=== PATIENT | female | born 1935 | race Caucasian/White ===

== ENCOUNTER 2017-02-18 20:53 | Inpatient (IN) | payer MEDICARE, OTHER ==
[~2017-02-18] VITALS: Ht 157.5 cm; Wt 63.6 kg
[2017-02-18 20:57] VITALS: Ht 157.5 cm; Wt 63.6 kg
[2017-02-18] MEDS ORDERED: LORAZEPAM 2 MG INJ IV ONE ×2 (21:30)
[2017-02-18 21:31] VITALS: TEMP 98.1
[2017-02-18] MEDS ORDERED: LEVO50TA83 PO (21:53)
[2017-02-18] MEDS ORDERED: LOSA50TA6 PO (21:53)
[2017-02-18] MEDS ORDERED: SULF1TAB31 PO (21:54)
[2017-02-18] MEDS ORDERED: FAMO20TA18 PO (21:54)
[2017-02-18 21:59] LABS: BASOPHIL # 0.1 10^3/ul (0.0-0.1); BASOPHILS % 0.7 % (0.0-2.0); EOSINOPHILS % 0.3 % (0.0-7.0); LYMPHOCYTES # 1.5 10^3/ul (0.8-2.9); LYMPHOCYTES % 15.1 % (15.0-51.0); MEAN CORPUSCULAR HEMOGLOBIN 31.1 pg (29.0-33.0); MEAN CORPUSCULAR HGB CONC 35.3 g/dl (32.0-37.0); MEAN CORPUSCULAR VOLUME 88.1 fl (82.0-101.0); MEAN PLATELET VOLUME 9.6 fl (7.4-10.4); MONOCYTE # 0.9 10^3/ul (0.3-0.9); MONOCYTES % 8.9 % (0.0-11.0); NEUTROPHIL # 7.2 10^3/ul (1.6-7.5); NEUTROPHILS % 74.6 % (39.0-77.0); PLATELET COUNT 271 10^3/UL (140-415); RED BLOOD COUNT 3.86 10^6/ul (4.20-5.40); RED CELL DISTRIBUTION WIDTH 12.9 % (11.5-14.5); WHITE BLOOD COUNT 9.7 10^3/ul (4.8-10.8)
--- NOTE | 2017-02-18 22:15 | RADRPT ---
PROCEDURE: XR Chest. CLINICAL INDICATION: Shortness of breath TECHNIQUE: Single AP portable chest COMPARISON: No prior Chest x-ray FINDINGS: The cardiomediastinal silhouette is within normal limits of size. Atherosclerotic calcification of t he aorta. The lungs are clear without pleural effusion or focal consolidation. No pneumothorax. Sev ere left glenohumeral joint space narrowing and subchondral sclerosis. Right total glenohumeral join t prosthesis. IMPRESSION: 1. No evidence for active cardiopulmonary disease. 2. Chronic findings of the shoulder joints as detailed above RPTAT:AAJJ Physician Kelsey Date Time Electronically viewed and signed by Physician Kelsey on 02/18/2017 22:14 PONCE/
[2017-02-18 22:23] LABS: D-DIMER 778.03 ng/ml (<460)
[2017-02-18 22:25] LABS: ANION GAP 17 (8-16); BLOOD UREA NITROGEN 11 mg/dl (7-20); CALCIUM 9.5 mg/dl (8.4-10.2); CARBON DIOXIDE 19 mmol/L (21-31); CHLORIDE 92 mmol/L (97-110); CREATININE 0.81 mg/dl (0.44-1.00); GLUCOSE 116 mg/dl (70-220); POTASSIUM 3.7 mmol/L (3.5-5.1); SODIUM 124 mmol/L (135-144)
[2017-02-18 22:37] LABS: TROPONIN-I < 0.012 ng/ml (0.00-0.12)
[2017-02-18] MEDS ORDERED: SOD CHLORIDE 0.9% 1,000 ML IV STA (22:43)
[2017-02-18] MEDS ORDERED: SOD CHLORIDE 0.9% 500 ML IV STA (22:46)
--- NOTE | 2017-02-18 22:50 | ERA ---
ER Documentation Chief Complaint Date/Time DATE: 02/18/17 TIME: 22:50 Chief Complaint BIBA RA99 from home, c/o SOB and palpitations HPI 81-year-old female presenting with complaints of shortness of breath and palpitations. History is limited as the patient seems somewhat confused and has difficulty remembering things per her. She denies any associated chest pain , fever, chills. She is unable to provide any further history. Her daughter later arrived at bedside and stated that the patient has been increasingly confused for the past 2 weeks. She was taken to [facility] 3 days ago and admitted for a UTI and confusion. CT head there was normal. She was diagnosed with a UTI and treated with Bactrim. She has taken 2 doses of her home Bactrim so far. She denies any dysuria at this time. ROS Limited given the patient's confusion Medications Home Meds Reported Medications Sulfamethoxazole/Trimethoprim* (Bactrim Ds* Tablet) 1 Each Tablet, 1 TAB PO BID , TAB 02/18/17 Famotidine* (Famotidine*) 20 Mg Tablet, 20 MG PO DAILY, #30 TAB 02/18/17 Losartan Potassium* (Losartan Potassium*) 50 Mg Tablet, 50 MG PO DAILY, TAB 02/18/17 Levothyroxine Sodium* (Synthroid*) 50 Mcg Tablet, 50 MCG PO BEFORE BREAKFAST, # 30 TAB 02/18/17 Allergies Allergies: Coded Allergies: No Known Allergy (Unverified , 02/18/17) PMhx/Soc Hx Miscellaneous Medical Probl: Yes (HYPOTHYROID, ELEV. CHOLESTEROL, ANXIETY PER REPORT) Hx Alcohol Use: No Hx Substance Use: No Hx Tobacco Use: No Smoking Status: Never smoker FmHx Family History: No diabetes Physical Exam Vitals Vital Signs Date Time Temp Pulse Resp B/P Pulse Ox O2 Delivery O2 Flow Rate FiO2 02/18/17 22:41 88 17 143/70 99 Nasal Cannula 1.0 02/18/17 21:31 Nasal Cannula 2 02/18/17 21:31 98.1 91 19 160/74 99 Room Air 02/18/17 20:57 98.1 76 18 163/84 98 Physical Exam Const: Appears anxious, nontoxic Head: Atraumatic Eyes: Normal Conjunctiva ENT: Normal External Ears, Nose and Mouth. Neck: Full range of motion..~ No meningismus. Resp: Tachypneic,Clear to auscultation bilaterally Cardio: Regular rate and rhythm, no murmurs. 2+ distal pulses Abd: Soft, non tender, non distended. Normal bowel sounds Skin: No petechiae or rashes Back: No midline or flank tenderness Ext: No cyanosis, or edema Neur: Awake and alert Psych: Anxious Result Diagram: 02/18/17214002/18/172140 Results 24 hrs Laboratory Tests Test 02/18/17 21:41 02/18/17 23:00 White Blood Count 9.710^3/ul Red Blood Count 3.8610^6/ul Hemoglobin 12.0g/dl Hematocrit 34.0% Mean Corpuscular Volume 88.1fl Mean Corpuscular Hemoglobin 31.1pg Mean Corpuscular Hemoglobin Concent 35.3g/dl Red Cell Distribution Width 12.9% Platelet Count 45935^3/UL Mean Platelet Volume 9.6fl Neutrophils % 74.6% Lymphocytes % 15.1% Monocytes % 8.9% Eosinophils % 0.3% Basophils % 0.7% Nucleated Red Blood Cells % 0.0/100WBC Neutrophils # 7.210^3/ul Lymphocytes # 1.510^3/ul Monocytes # 0.910^3/ul Eosinophils # 0.010^3/ul Basophils # 0.110^3/ul Nucleated Red Blood Cells # 0.010^3/ul D-Dimer 778.03ng/ml D-Dimer Comment Sodium Level 124mmol/L Potassium Level 3.7mmol/L Chloride Level 92mmol/L Carbon Dioxide Level 19mmol/L Anion Gap 17 Blood Urea Nitrogen 11mg/dl Creatinine 0.81mg/dl Glucose Level 116mg/dl Calcium Level 9.5mg/dl Troponin I < 0.012ng/ml Urine Color STRAW Urine Clarity CLEAR Urine pH 7.0 Urine Specific [place] 1.006 Urine Ketones NEGATIVEmg/dL Urine Nitrite NEGATIVEmg/dL Urine Bilirubin NEGATIVEmg/dL Urine Urobilinogen NEGATIVEmg/dL Urine Leukocyte Esterase NEGATIVELeu/ul Urine Microscopic RBC 8/HPF Urine Microscopic WBC 0/HPF Urine Hemoglobin 1+mg/dL Urine Random Sodium 116mmol/L Urine Random Potassium < 9.7mmol/L Urine Glucose NEGATIVEmg/dL Urine Total Protein NEGATIVEmg/dl Current Medications Medications (Trade) Dose Ordered Sig/Myriam Route PRN Reason Start Time Stop Time Status Last Admin Dose Admin Lorazepam (Ativan) 0.5 mg ONCE ONCE IV 02/18/17 21:30 02/18/17 21:30 DC Lorazepam 0.25 mg 0.25 mg ONCE ONCE IV 02/18/17 21:30 02/18/17 21:31 DC 02/18/17 21:49 Sodium Chloride 1,000 ml @ 1,000 mls/hr Q1H STAT IV 02/18/17 22:43 02/18/17 22:48 DC Sodium Chloride 500 ml @ 500 mls/hr Q1H STAT IV 02/18/17 22:46 02/18/17 23:45 DC 02/19/17 00:03 Ceftriaxone Sodium (Rocephin) 50 ml @ 100 mls/hr ONCE ONCE IVPB 02/18/17 23:00 02/18/17 23:29 DC 02/19/17 00:03 Ondansetron HCl (Zofran Inj) 4 mg ER BRIDGE PRN IV NAUSEA AND/OR VOMITING 02/18/17 23:30 02/19/17 23:29 Acetaminophen (Tylenol Tab) 650 mg ER BRIDGE PRN PO MILD PAIN/FEVER 02/18/17 23:30 02/19/17 23:29 IV Flush (NS 3 ml) 3 ml PER PROTOCOL IV 02/19/17 00:30 Ondansetron HCl (Zofran Inj) 4 mg Q6H PRN IV NAUSEA AND/OR VOMITING 02/19/17 00:30 Famotidine 20 mg 20 mg Q12 PO 02/19/17 09:00 Sodium Chloride (Sodium Chloride Iv 3%) 50 ml @ 5 mls/min Q10M IV 02/19/17 01:00 02/19/17 01:09 Levothyroxine Sodium (Synthroid) 50 mcg BEFORE BREAKFAST PO 02/19/17 07:00 Procedures/MDM EKG: Rate/Rhythm: Sinus rhythm with PVCs QRS, ST, T-waves: No changes consistent w/ acute ischemia, Poor R-wave progression, left axis deviation Impression: No evidence of ischemia or arrhythmia Chest x-ray IMPRESSION: 1. No evidence for active cardiopulmonary disease. 2. Chronic findings of the shoulder joints as detailed above RPTAT:AAJJ Physician Kelsey Date Time Electronically viewed and signed by Physician Kelsey on 02/18/2017 22:14 Labs CBC: no anemia or evidence of infection BMP: Hyponatremia, hypochloremia, low CO2 likely secondary to hyperventilation Trop WNL UA: no evidence of infection Urine electrolytes pending MDM Patient is presenting with confusion and shortness of breath with exam consistent with anxiety. Her vitals are stable and there is no evidence of hypoxia or respiratory failure. I gave her a small dose of IV Ativan with significant improvement in her symptoms. I reviewed her labs from yesterday that the daughter provided for me. Her sodium yesterday was normal at 136. Today as decreased to 124. This is of unknown etiology. I also called [facility] and reportedly her urine culture results show resistance to Bactrim. I started her on IV ceftriaxone here. A small fluid bolus was given. Urine electrolytes were sent. Patient is asymptomatic at this time but not stable for discharge. She will be admitted to telemetry for further workup and monitoring. Departure Diagnosis: Primary Impression: Acute hyponatremia Additional Impressions: Anxiety Confusion History of UTI Condition: Serious SUZIE WOLF MD Feb 18, 2017 22:50
[2017-02-18] MEDS ORDERED: CEFTRIAXONE 1 GM/50 ML (PMX) 50 ML IVPB ONE (23:00)
[2017-02-18] MEDS ORDERED: ONDANSETRON 4 MG INJ IV PRN (23:30)
[2017-02-18] MEDS ORDERED: ACETAMINOPHEN 325 MG TAB PO PRN (23:30)
[2017-02-18 23:33] LABS: ADD UMIC YES; UR ASCORBIC ACID NEGATIVE (NEGATIVE); UR BILIRUBIN (Dip) NEGATIVE (NEGATIVE); UR BLOOD (Dip) 1+ mg/dL (NEGATIVE); UR CLARITY CLEAR (CLEAR); UR COLOR STRAW (YELLOW); UR GLUCOSE (Dip) NEGATIVE (NEGATIVE); UR KETONES (Dip) NEGATIVE (NEGATIVE); UR LEUKOCYTE ESTERASE (Dip) NEGATIVE Leu/ul (NEGATIVE); UR NITRITE (Dip) NEGATIVE (NEGATIVE); UR RBC 8 /HPF (0-5); UR SPECIFIC GRAVITY (Dip) 1.006 (1.003-1.030); UR TOTAL PROTEIN (Dip) NEGATIVE (NEGATIVE); UR UROBILINOGEN (Dip) NEGATIVE (NEGATIVE)
[2017-02-18 23:37] LABS: POTASSIUM,URINE RANDOM < 9.7 mmol/L (25-125)
[2017-02-19] MEDS ORDERED: ONDANSETRON 4 MG INJ IV PRN (00:30)
[2017-02-19] MEDS ORDERED: NACL 0.9% 3 ML SYG IV SCH (00:30)
[2017-02-19] MEDS ORDERED: NACL 3% IV SCH ×2 (01:00→08:00)
[2017-02-19 04:29] LABS: CALCIUM 9.4 mg/dl (8.4-10.2); CREATININE 0.79 mg/dl (0.44-1.00); POTASSIUM 3.9 mmol/L (3.5-5.1)
[2017-02-19] MEDS ORDERED: IOHEXOL 300MG/ML 150 ML BTL ONE (06:13)
[2017-02-19] MEDS ORDERED: SOD CHLORIDE 0.9% 100 ML ONE (06:13)
[2017-02-19 06:38] LABS: CALCIUM 9.4 mg/dl (8.4-10.2); CREATININE 0.77 mg/dl (0.44-1.00); POTASSIUM 3.4 mmol/L (3.5-5.1)
--- NOTE | 2017-02-19 07:12 | RADRPT ---
PROCEDURE: CT angiogram of the chest with contrast. CLINICAL INDICATION: Shortness of breath confusion elevated D-dimer TECHNIQUE: CT scan of the chest with contrast was performed on a multidetector high-resolution CT scan. The patient was scanned following the uncomplicated intravenous administration of 100 ml Omni paque 300. Coronal and sagittal reformatted images were obtained from the axial source images. Stand celine CT angiogram of the chest with contrast protocols were performed. 2-D and 3-D reformats were per formed. The total exam CTDI equals 28.17 mGy and the total exam DLP equals 515.67 mGy-cm. One or more of the following dose reduction techniques were used: - Automated exposure control. - Adjustment of the mA and/or kV according to patient size. Use of iterative reconstruction technique. COMPARISON: Chest earlier same day FINDINGS: The pulmonary outflow tract, right and left main pulmonary arteries, right and left interlobar and p rimary intersegmental pulmonary arteries are well enhanced without evidence of filling defects. Spec ifically no central pulmonary emboli. No evidence of pulmonary arterial hypertension or right heart strain. There is atherosclerosis of the aorta without aneurysm or dissection. The right left subclavian art eries are unremarkable. The brachial cephalic artery, proximal aspects of the right left common bearden tid and vertebral arteries are unremarkable. The SMA and celiac axis are unremarkable. Right and lef t solitary renal arteries are unremarkable. Heart is within normal in size without pericardial effusion. No evidence of pleural effusions or pne umothorax. No evidence of mediastinal hilar or axillary lymphadenopathy. Mild chronic basilar inters titial lung disease. Mild dependent atelectasis. No evidence of acute lung consolidation or pulmonar y nodules. Images of the upper abdomen are unremarkable. The thoracic and proximal abdominal wall are unremarka ble. Mild chronic T11 vertebral body compression fracture. Degenerative changes lower cervical thora cic and upper lumbar spine. There are no acute osseous findings. 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 There is a total right proximal humeral prosthesis in place incompl etely visualized. IMPRESSION: 1. No evidence of central pulmonary emboli. Negative for pulmonary arterial hypertension or right h eart strain. 2. No evidence of aortic aneurysm or dissection. 3. Chronic basilar interstitial lung disease and mild dependent atelectasis. 4. No evidence of acute infiltrates, pulmonary nodules, thoracic effusions or lymphadenopathy. RPTAT:AAJJ Physician Rubina Date Time Electronically viewed and signed by Yasmeen Sharpe Physician on 02/19/2017 06:47 MARC/
--- NOTE | 2017-02-19 07:14 | HP ---
Date/Time of Note Date/Time of Note DATE: 02/19/17 TIME: 07:12 Assessment/Plan VTE Prophylaxis VTE Prophylaxis Intervention: LMWH Assessment/Plan Chief Complaint/Hosp Course This is a 81 year female being admitted to the telemetry floor for: #1 confusion: Acute hyponatremia and/or urinary tract infection. As per ED physician records patient had a sodium level of 136 on 02/17 upon discharge from [facility]. She is currently on Bactrim for a urinary tract infection which was found to be resistant to Bactrim as per the ED physician. At the current time will discontinue Bactrim. Will provide the patient with 50 mL's of hypertonic 3% saline over 10 minutes. Will check BMP every 3 hours. Will then put the patient on fluid restriction. Will put her on ceftriaxone for urinary tract infection and attempt to find out culture and sensitivities from [facility] regarding her urinary tract infection. #2 acute hyponatremia: Patient does appear confused however unsure whether this is related to the hyponatremia or the UTI or combination. She did not have any nausea vomiting or neurological deficits at this time. will correct initially with 50 a months of hypertonic 3% saline over 10 minutes and then put the patient on 800cc fluid restriction. Will check urine osmole and urinary sodium excretion. Will consult nephrology. #3 urinary tract infection: At the current time will DC Bactrim secondary to hyponatremia. Will put the patient on ceftriaxone IV every 24 hours. Will obtain to obtain urine culture sensitivities from [facility]. #4 hypothyroidism: We will check a TSH level, continue levothyroxine #5 elevated d-dimer: Patient apparently did have some shortness of breath on admission however currently she is not any respiratory distress. D-dimer was elevated in the 700s. Will check a CTA of the chest to rule out PE. #6 DVT GI prophylaxis: Lovenox, acid iliana Further treatment strategy for bladder as per the clinical course Problems: HPI/ROS Admit Date/Time Admit Date/Time Feb 18, 2017 at 23:21 Hx of Present Illness Chief complaint: Shortness of breath This is a 81-year-old female presenting with complaints of shortness of breath and palpitations. History is limited as the patient seems somewhat confused and has difficulty remembering things. She denies any associated chest pain, fever, chills. She is unable to provide any further history. As per the ED physician, her daughter later arrived at bedside and stated that the patient has been increasingly confused for the past 2 weeks. She was taken to [facility] 3 days ago and admitted for a UTI and confusion. CT head there was normal. She was diagnosed with a UTI and treated with Bactrim. She has taken 2 doses of her home Bactrim so far. She denies any dysuria at this time. Allergies: NKDA Medications: See JUL TRACE Const: As per HPI Eyes : No pain discharge or redness or change in visual acuity ENT: No pain, sore throat, congestion, congestion, dysphagia or discharge Respiratory: No shortness of breath, cough, sputum, wheezing, or pleuritic pain Cardiovascular: No chest pain, palpitation, PND, or edema GI : no change in appetite, abdominal pain, nausea, vomiting, diarrhea, constipation, or change in the color his stool Genitourinary: No dysuria, hematuria, flank pain , discharge or CVA tenderness Musculoskeletal: No joint pain, back pain, neck pain, restricted range of motion in neck or joints Skin: No rash, bruising or hives Neuro: As per HPI Endocrine: No polyuria, polydipsia, temperature intolerance Psych: No hallucination, depression, anxiety or suicidal ideation PMH/Family/Social Past Medical History hypothyroidism, htn, gerd Past Surgical History hysterectomy Family History Significant Family History: no pertinent family hx Social History Alcohol Use: none Smoking Status: Former smoker Drug Use: none Exam/Review of Systems Vital Signs Vitals Vital Signs Date Time Temp Pulse Resp B/P Pulse Ox O2 Delivery O2 Flow Rate FiO2 02/18/17 22:41 88 17 143/70 99 Nasal Cannula 1.0 02/18/17 21:31 98.1 Exam Exam General: Patient is well-developed well-nourished The patient is alert oriented -3 lying comfortably in bed. HEENT: Atraumatic, normocephalic. The pupils are equal, round and reactive. Extraocular motor are intact Neck: Supple with full range of motion. No rigidity or meningismus Chest: Nontender Lungs: Clear to auscultation bilaterally no crackles rales or wheezing Heart: Normal S1-S2, Regular rhythm and rate. Abdomen: Soft , nontender, nondistended , bowel sounds are present. No guarding no rebound tenderness , No masses or organomegaly. No costovertebral temporal angle mass Extremities: Normal to inspection, no edema no cyanosis Neurologic: Patient does appear somewhat confused, she is alert and oriented 3 , no focal neurological deficits Additional Comments PROCEDURE: XR Chest. CLINICAL INDICATION: Shortness of breath TECHNIQUE: Single AP portable chest COMPARISON: No prior Chest x-ray FINDINGS: The cardiomediastinal silhouette is within normal limits of size. Atherosclerotic calcification of the aorta. The lungs are clear without pleural effusion or focal consolidation. No pneumothorax. Severe left glenohumeral joint space narrowing and subchondral sclerosis. Right total glenohumeral joint prosthesis. IMPRESSION: 1. No evidence for active cardiopulmonary disease. 2. Chronic findings of the shoulder joints as detailed above RPTAT:AAJJ Physician Kelsey Date Time Electronically viewed and signed by Jeremy Mejia Physician on 02/18/2017 22:14 PONCE/ CC: SUZIE WOLF MD Labs Result Diagram: 02/18/17 2141 02/19/17 0525 Medications Medications Current Medications Ondansetron HCl (Zofran Inj) 4 mg Q6H PRN IV NAUSEA AND/OR VOMITING; Start at 00:30 Famotidine (Pepcid) 20 mg Q12 PO ; Start 02/19/17 at 09:00 CARLOS BOLTON Feb 19, 2017 07:14
[2017-02-19 07:23] VITALS: PULSE 66
[2017-02-19 08:00] VITALS: BP 136/66; PULSE 67; PULSE 68; RESP 18
[2017-02-19] MEDS: LEVOTHYROXINE 50 MCG TAB PO SCH (08:50)
[2017-02-19] MEDS ORDERED: FAMOTIDINE 20 MG TAB PO SCH (09:00)
[2017-02-19 10:46] LABS: CALCIUM 9.3 mg/dl (8.4-10.2); CREATININE 0.77 mg/dl (0.44-1.00); POTASSIUM 3.7 mmol/L (3.5-5.1)
[2017-02-19] MEDS: ENOXAPARIN 40 MG/0.4 ML SYG SC SCH (10:59)
[2017-02-19 12:00] VITALS: BP 111/56; PULSE 64; PULSE 75; RESP 20
[2017-02-19 13:26] LABS: CALCIUM 9.6 mg/dl (8.4-10.2); CREATININE 0.81 mg/dl (0.44-1.00); POTASSIUM 4.3 mmol/L (3.5-5.1)
[2017-02-19 16:00] VITALS: BP 162/68; PULSE 72; PULSE 82; RESP 18
[2017-02-19 19:07] VITALS: BP 123/58; PULSE 68; RESP 18
[2017-02-19 20:04] VITALS: PULSE 83
[2017-02-20] VITALS (11 sets, daily range): BP systolic 143–152; BP diastolic 65–79; PULSE 50–75; RESP 18–20
--- NOTE | 2017-02-20 03:33 | CONS ---
DATE OF ADMISSION: 02/18/2017 DATE OF CONSULTATION: NEPHROLOGY CONSULTATION REASON FOR CONSULTATION: Hyponatremia. PHYSICIAN REQUESTING CONSULTATION: Dr. Bolton HISTORY OF PRESENT ILLNESS: This is an 81-year-old female with a past medical history of hypothyroi dism, hypertension and GERD, who presents to [facility] with palpitations, shortne ss of breath. The patient stated that she has also had increased confusion and altered mental statu s over the last 2 weeks by her daughter. The patient also recently was in [facility] for a UTI confusion. At that time, patient was given Bactrim. Patient now returns back to the emergen cy room at [facility] with further bouts of confusion. Upon arrival, the patient had a CT angio, as on admission she was complaining about chest pain, which showed no evidence of em boli, aneurysm or infiltrate. The patient also had a chest x-ray that showed no infiltrate. On adm ission, patient noted to be hyponatremic with a sodium of 127. The patient had a white count of 9.7 , hemoglobin 12.0. In terms of patient's renal history, the patient has no prior history of hyponatremia. The patient does admit to drinking copious amounts of fluid daily. She denies any hemoptysis, hematemesis, zita tochezia. PAST MEDICAL HISTORY: As stated above, history of hypertension, history of hypothyroidism, history of UTI. PAST SURGICAL HISTORY: Hysterectomy. FAMILY HISTORY: Noncontributory. SOCIAL HISTORY: Does not drink, smoke or do drugs. MEDICATIONS: Have been reviewed. REVIEW OF SYSTEMS: A 14-point review of systems was conducted. Pertinent positives stated in the H PI, otherwise negative. PHYSICAL EXAMINATION: VITALS: Blood pressure is 123/58, respirations 18, pulse 68, temperature 97.4. HEENT: Head is normocephalic. NECK: Supple. HEART: Regular rate. LUNGS: Show diminished breath sounds at base. ABDOMEN: Soft, nontender to palpation, no rebound or guarding. EXTREMITIES: Negative for clubbing, cyanosis, no edema. DERMATOLOGIC: No rashes. MUSCULOSKELETAL: No joint effusions. NEUROLOGIC: No change in exam. MEDICATIONS: The patient's medications reviewed. LABORATORY DATA: Shows a sodium 126, potassium 4.3, BUN 9, creatinine 0.81, white count 9.7, hemogl obin 12.0, hematocrit 34.0, platelets 271. IMAGING STUDIES: As stated in HPI. ASSESSMENT AND PLAN: This is an 81-year-old female who presents with: 1. Hyponatremia. Unclear if this is acute versus chronic versus subacute. Etiology appears to be secondary to syndrome of inappropriate antidiuretic hormone. The patient's sodium level is 117. Ur ine osmolarity is inappropriately elevated at 285. Plan at this point would be to continue current medical management. The patient is status post 50 mL of 3% sodium chloride. Would recommend to jose ce the patient on free water restriction, no more than 800 mL daily. Would recommend to increase os molar intake. Would consider starting salt tablets and possibly demeclocycline if patient's sodium levels do not improve simply with free water restriction. Would otherwise continue to monitor seria l sodium levels closely. 2. Acute encephalopathy. Etiology may be secondary to hyponatremia, urinary tract infection. Woul d continue to monitor mental status closely. We will continue to slowly correct underlying hyponatr emia. 3. Urinary tract infection. Continue antibiotic therapy. 4. Hypothyroidism. Continue Synthroid. Thank you, Dr. Bolton, for this interesting consult. It will be a pleasure to follow patient with you throughout the hospital course. Dictated By: NHI SOLANO DO NR/NTS Conf#: [id number] DID#: [id number] CC: CARLOS BOLTON MD;*EndCC*
[2017-02-20] MEDS: LEVOTHYROXINE 50 MCG TAB PO SCH (07:00)
[2017-02-20 08:20] LABS: BASOPHIL # 0.1 10^3/ul (0.0-0.1); BASOPHILS % 1.4 % (0.0-2.0); EOSINOPHILS # 0.2 10^3/ul (0.0-0.5); EOSINOPHILS % 3.3 % (0.0-7.0); HEMATOCRIT 39.5 % (37.0-47.0); HEMOGLOBIN 12.9 g/dl (12.0-16.0); LYMPHOCYTES % 35.4 % (15.0-51.0); MEAN CORPUSCULAR HGB CONC 32.7 g/dl (32.0-37.0); MEAN CORPUSCULAR VOLUME 91.9 fl (82.0-101.0); MEAN PLATELET VOLUME 9.6 fl (7.4-10.4); MONOCYTE # 0.7 10^3/ul (0.3-0.9); MONOCYTES % 11.4 % (0.0-11.0); NEUTROPHIL # 2.7 10^3/ul (1.6-7.5); PLATELET COUNT 324 10^3/UL (140-415); RED CELL DISTRIBUTION WIDTH 13.4 % (11.5-14.5); WHITE BLOOD COUNT 5.7 10^3/ul (4.8-10.8)
[2017-02-20 08:56] LABS: CALCIUM 9.8 mg/dl (8.4-10.2); CREATININE 0.98 mg/dl (0.44-1.00); PHOSPHORUS 4.1 mg/dl (2.5-4.9); POTASSIUM 4.1 mmol/L (3.5-5.1)
--- NOTE | 2017-02-20 09:33 | PN ---
DATE: 02/20/2017 SUBJECTIVE: The patient is stable. No events overnight. No fevers, chills, nausea, vomiting, no s hortness of breath. OBJECTIVE: VITAL SIGNS: Blood pressure 149/73, respirations 20, pulse 60, temperature 98.0. HEENT: Head is normocephalic. NECK: Supple. HEART: Regular rate. LUNGS: Show diminished breath sounds at the base. ABDOMEN: Soft, nontender to palpation without rebound or guarding. EXTREMITIES: Negative for clubbing, cyanosis, no edema. DERMATOLOGIC: No rashes. MUSCULOSKELETAL: No joint effusions. NEUROLOGIC: No change in exam. MEDICATIONS: The patient's medications were reviewed. LABORATORY DATA: Pending. ASSESSMENT AND PLAN: 1. Hyponatremia, etiology is unclear if acute versus chronic. Underlying cause may be secondary to syndrome of inappropriate antidiuretic hormone. The patient's urine studies are consistent with sy ndrome of inappropriate antidiuretic hormone secretion given elevated urinary sodium. The patient h as inappropriately elevated urinary osmolarity. At this point, would continue free water restrictio n. Would consider starting salt tablets and demeclocycline if sodium levels have not improved. Oth erwise, continue current treatment plan, supportive care, monitor serial sodium levels closely. 2. Acute encephalopathy. Etiology may be secondary to hyponatremia, urinary tract infection. The patient's mental status appears to have improved. Continue to monitor. 3. Urinary tract infection. The patient is status post antibiotic therapy. 4. Hypothyroidism. Continue Synthroid. Dictated By: NHI ALEXANDER Conf#: [id number] DID#: [id number]
[2017-02-20] MEDS: ENOXAPARIN 40 MG/0.4 ML SYG SC SCH (09:36)
--- NOTE | 2017-02-20 18:14 | PN ---
Date/Time of Note Date/Time of Note DATE: 02/20/17 TIME: 18:13 Assessment/Plan VTE Prophylaxis VTE Prophylaxis Intervention: LMWH Lines/Catheters IV [facility]ter [facility]from [facility]): Saline Lock Assessment/Plan Chief Complaint/Hosp Course 81 yo female wtih hypertension who presents with hyponatremia. 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 - Continue FW restriction, hold home meds - Trend BMP, likely resolved PT/OT Likely dc home tomorrow if stable Problems: Subjective 24 Hr Interval Summary Free Text/Dictation Sodium improved Still feeling unsteady Exam/Review of Systems Vital Signs Vitals Vital Signs Date Time Temp Pulse Resp B/P Pulse Ox O2 Delivery O2 Flow Rate FiO2 02/20/17 17:11 75 02/20/17 15:14 98.2 19 144/65 98 02/20/17 01:06 Room Air 02/18/17 22:41 1.0 Exam Constitutional: alert, oriented, well developed Psych: nl mood/affect, no complaints Head: atraumatic, normocephalic Eyes: EOMI, PERRL, nl conjunctiva, nl lids, nl sclera ENMT: nl external ears & nose, nl lips & teeth, nl nasal mucosa & septum Neck: non-tender, supple Respiratory: clear to auscultation, normal air movement Cardiovascular: nl pulses, regular rate and rhythm Gastrointestinal: nl liver, spleen, non-tender, soft Musculoskeletal: nl extremities to inspection, nl gait and stance Extremities: normal pulses Neurological: LOAD MANAGER II-XII intact, nl mental status, nl speech, nl strength Skin: nl turgor, No rash or lesions Lymph: nl lymph nodes Results Result Diagram: 02/20/17 0745 02/20/17 0746 Results 24 hrs Laboratory Tests Test 02/20/17 07:45 02/20/17 07:46 White Blood Count 5.7 # Red Blood Count 4.30 Hemoglobin 12.9 Hematocrit 39.5 Mean Corpuscular Volume 91.9 Mean Corpuscular Hemoglobin 30.0 Mean Corpuscular Hemoglobin Concent 32.7 Red Cell Distribution Width 13.4 Platelet Count 324 Mean Platelet Volume 9.6 Neutrophils % 48.0 Lymphocytes % 35.4 Monocytes % 11.4 H Eosinophils % 3.3 Basophils % 1.4 Nucleated Red Blood Cells % 0.0 Neutrophils # 2.7 Lymphocytes # 2.0 Monocytes # 0.7 Eosinophils # 0.2 Basophils # 0.1 Nucleated Red Blood Cells # 0.0 Sodium Level 134 L Potassium Level 4.1 Chloride Level 98 Carbon Dioxide Level 26 Anion Gap 14 Blood Urea Nitrogen 10 Creatinine 0.98 Glucose Level 85 Calcium Level 9.8 Phosphorus Level 4.1 Magnesium Level 2.0 Medications Medications Current Medications Ondansetron HCl (Zofran Inj) 4 mg Q6H PRN IV NAUSEA AND/OR VOMITING; Start at 00:30 Enoxaparin Sodium (Lovenox) 40 mg DAILY SC Last administered on 02/20/17 09: 36; Admin Dose 40 MG; Start 02/19/17 at 09:00 BERTA CLARK MD Feb 20, 2017 18:14
[2017-02-20] MEDS ORDERED: ACETAMINOPHEN 325 MG TAB PO PRN (21:30)
[2017-02-20] MEDS ORDERED: CEFTRIAXONE 1 GM/50 ML (PMX) 50 ML IVPB ONE (21:30)
[2017-02-20] MEDS ORDERED: CEFTRIAXONE 1 GM INJ IM ONE (21:30)
[2017-02-20 22:51] LABS: ADD UMIC YES; UR ASCORBIC ACID NEGATIVE (NEGATIVE); UR BACTERIA FEW /HPF (NONE SEEN); UR BILIRUBIN (Dip) NEGATIVE (NEGATIVE); UR BLOOD (Dip) 2+ mg/dL (NEGATIVE); UR CLARITY CLEAR (CLEAR); UR COLOR STRAW (YELLOW); UR GLUCOSE (Dip) NEGATIVE (NEGATIVE); UR KETONES (Dip) NEGATIVE (NEGATIVE); UR LEUKOCYTE ESTERASE (Dip) NEGATIVE Leu/ul (NEGATIVE); UR NITRITE (Dip) NEGATIVE (NEGATIVE); UR RBC 8 /HPF (0-5); UR SPECIFIC GRAVITY (Dip) 1.009 (1.003-1.030); UR TOTAL PROTEIN (Dip) NEGATIVE (NEGATIVE); UR UROBILINOGEN (Dip) NEGATIVE (NEGATIVE)
[2017-02-21 01:53] VITALS: BP 146/67; RESP 20
[2017-02-21] MEDS: LEVOTHYROXINE 50 MCG TAB PO SCH (06:25)
[2017-02-21 06:31] LABS: BASOPHIL # 0.1 10^3/ul (0.0-0.1); BASOPHILS % 1.4 % (0.0-2.0); EOSINOPHILS # 0.2 10^3/ul (0.0-0.5); HEMATOCRIT 36.1 % (37.0-47.0); LYMPHOCYTES # 1.4 10^3/ul (0.8-2.9); LYMPHOCYTES % 27.6 % (15.0-51.0); MEAN CORPUSCULAR HEMOGLOBIN 30.5 pg (29.0-33.0); MEAN CORPUSCULAR HGB CONC 33.2 g/dl (32.0-37.0); MEAN CORPUSCULAR VOLUME 91.6 fl (82.0-101.0); MEAN PLATELET VOLUME 9.5 fl (7.4-10.4); MONOCYTE # 0.7 10^3/ul (0.3-0.9); NEUTROPHIL # 2.6 10^3/ul (1.6-7.5); NEUTROPHILS % 53.6 % (39.0-77.0); PLATELET COUNT 288 10^3/UL (140-415); RED BLOOD COUNT 3.94 10^6/ul (4.20-5.40); RED CELL DISTRIBUTION WIDTH 13.2 % (11.5-14.5); WHITE BLOOD COUNT 4.9 10^3/ul (4.8-10.8)
[2017-02-21 07:08] LABS: CALCIUM 9.7 mg/dl (8.4-10.2); CREATININE 0.92 mg/dl (0.44-1.00); MAGNESIUM 1.9 mg/dl (1.7-2.5); PHOSPHORUS 4.1 mg/dl (2.5-4.9); POTASSIUM 4.4 mmol/L (3.5-5.1)
[2017-02-21 07:47] VITALS: BP 134/91; RESP 18
[2017-02-21] MEDS: ENOXAPARIN 40 MG/0.4 ML SYG SC SCH (08:40)
[2017-02-21] MEDS ORDERED: DOCUSATE SODIUM 100 MG CAP PO SCH (09:00)
[2017-02-21] MEDS ORDERED: POLYETHYLENE GLYCOL 17 GM PACKET PO SCH (09:00)
--- NOTE | 2017-02-21 11:08 | PN ---
DATE: 02/21/2017 SUBJECTIVE: The patient is stable. No events overnight. No fevers, chills, nausea, vomiting. OBJECTIVE: VITAL SIGNS: Blood pressure is 134/91, temperature 97.5, pulse 58, respiration 18. HEENT: Head is normocephalic. NECK: Supple. HEART: Regular rate. LUNGS: Show diminished breath sounds at the base. ABDOMEN: Soft, nontender to palpation. No rebound or guarding. EXTREMITIES: Negative for clubbing, cyanosis, no edema. DERMATOLOGIC: No rashes. MUSCULOSKELETAL: No joint effusions. NEUROLOGIC: No change in exam. MEDICATIONS: The patient's medications have been reviewed. LABORATORY DATA: Shows a sodium 134, BUN 14, creatinine 0.92. White count 4.9, hemoglobin 10.9, he matocrit 36.1. Patient's urinalysis shows no pyuria. ASSESSMENT AND PLAN: 1. Hyponatremia, etiology is secondary to syndrome of inappropriate antidiuretic hormone. The nasir ent's sodium levels have improved with free water restriction. At this point, would continue denzel t treatment plan. Continue to limit total fluid intake to no more than 800 mL daily. Monitor close ly. 2. Acute encephalopathy, improved. Continue to monitor. 3. Urinary tract infection. The patient is status post antibiotic therapy. Repeat urinalysis show s no evidence of pyuria. 4. Hypothyroidism. Continue Synthroid. Dictated By: NHI MONIQUE/JUAN PABLO Conf#: [id number] DID#: [id number]
[2017-02-21 13:41] VITALS: BP 121/58; RESP 16
--- NOTE | 2017-02-21 14:16 | PDOCDIS ---
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
--- NOTE | 2017-02-21 14:17 | DS ---
Date/Time of Note Date/Time of Note DATE: 02/21/17 TIME: 14:16 Discharge Summary Admission/Discharge Info Admit Date/Time Feb 20, 2017 at 16:14 Discharge Date/Time Discharge Diagnosis Hyponatremia secondary to SIADH Hx of Present Illness Chief complaint: Shortness of breath This is a 81-year-old female presenting with complaints of shortness of breath and palpitations. History is limited as the patient seems somewhat confused and has difficulty remembering things. She denies any associated chest pain, fever, chills. She is unable to provide any further history. As per the ED physician, her daughter later arrived at bedside and stated that the patient has been increasingly confused for the past 2 weeks. She was taken to [facility] 3 days ago and admitted for a UTI and confusion. CT head there was normal. She was diagnosed with a UTI and treated with Bactrim. She has taken 2 doses of her home Bactrim so far. She denies any dysuria at this time. Allergies: NKDA Medications: See [facility] Course This is a 81 year female being admitted to the telemetry floor for: #1 confusion: Acute hyponatremia and/or urinary tract infection. As per ED physician records patient had a sodium level of 136 on 02/17 upon discharge from [facility]. She is currently on Bactrim for a urinary tract infection which was found to be resistant to Bactrim as per the ED physician. At the current time will discontinue Bactrim. Will provide the patient with 50 mL's of hypertonic 3% saline over 10 minutes. Will check BMP every 3 hours. Will then put the patient on fluid restriction. Will put her on ceftriaxone for urinary tract infection and attempt to find out culture and sensitivities from [facility] regarding her urinary tract infection. #2 acute hyponatremia: Patient does appear confused however unsure whether this is related to the hyponatremia or the UTI or combination. She did not have any nausea vomiting or neurological deficits at this time. will correct initially with 50 a months of hypertonic 3% saline over 10 minutes and then put the patient on 800cc fluid restriction. Will check urine osmole and urinary sodium excretion. Will consult nephrology. #3 urinary tract infection: At the current time will DC Bactrim secondary to hyponatremia. Will put the patient on ceftriaxone IV every 24 hours. Will obtain to obtain urine culture sensitivities from [facility]. #4 hypothyroidism: We will check a TSH level, continue levothyroxine #5 elevated d-dimer: Patient apparently did have some shortness of breath on admission however currently she is not any respiratory distress. D-dimer was elevated in the 700s. Will check a CTA of the chest to rule out PE. #6 DVT GI prophylaxis: Lovenox, acid iliana Further treatment strategy for bladder as per the clinical course COURSE: Patient was found to have hyponatremia. Her home medications were held. Labs were consistent with SIADH. Fluid restriction was followed. Her sodium level return to 134 and was stable. 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 She was advised to continue taking synthroid but to stop taking her other medications including losartan until she can see her doctor and have follow up blood work Home Meds Reported Medications Levothyroxine Sodium* (Synthroid*) 50 Mcg Tablet, 50 MCG PO BEFORE BREAKFAST, # 30 TAB 02/18/17 Discontinued Reported Medications Sulfamethoxazole/Trimethoprim* (Bactrim Ds* Tablet) 1 Each Tablet, 1 TAB PO BID , TAB 02/18/17 Famotidine* (Famotidine*) 20 Mg Tablet, 20 MG PO DAILY, #30 TAB 02/18/17 Losartan Potassium* (Losartan Potassium*) 50 Mg Tablet, 50 MG PO DAILY, TAB 02/18/17 Follow-up Plan Stop taking any medications except for your thyroid medicine until you are able to see your doctor or Dr Watts who is the kidney doctor you saw in the hospital Return to the hostpial if you feel any symptoms that concern you It is important to have your blood work checked in the next 1-2 weeks Primary Care Provider Not On Staff Doctor Pending Labs Laboratory Tests Test 02/20/17 21:22 02/21/17 05:28 Urine Color STRAW (YELLOW) Urine Clarity CLEAR (CLEAR) Urine pH 6.0 (5.0-9.0) Urine Specific [place] 1.009 (1.003-1.030) Urine Ketones NEGATIVEmg/dL (NEGATIVE) Urine Nitrite NEGATIVEmg/dL (NEGATIVE) Urine Bilirubin NEGATIVEmg/dL (NEGATIVE) Urine Urobilinogen NEGATIVEmg/dL (NEGATIVE) Urine Leukocyte Esterase NEGATIVELeu/ul (NEGATIVE) Urine Microscopic RBC 8/HPF (0-5) Urine Microscopic WBC 3/HPF (0-5) Urine Bacteria FEW/HPF (NONE SEEN) Urine Hemoglobin 2+mg/dL (NEGATIVE) Urine Glucose NEGATIVEmg/dL (NEGATIVE) Urine Total Protein NEGATIVEmg/dl (NEGATIVE) White Blood Count 4.910^3/ul (4.8-10.8) Red Blood Count 3.9410^6/ul (4.20-5.40) Hemoglobin 12.0g/dl (12.0-16.0) Hematocrit 36.1% (37.0-47.0) Mean Corpuscular Volume 91.6fl (82.0-101.0) Mean Corpuscular Hemoglobin 30.5pg (29.0-33.0) Mean Corpuscular Hemoglobin Concent 33.2g/dl (32.0-37.0) Red Cell Distribution Width 13.2% (11.5-14.5) Platelet Count 42547^3/UL (140-415) Mean Platelet Volume 9.5fl (7.4-10.4) Neutrophils % 53.6% (39.0-77.0) Lymphocytes % 27.6% (15.0-51.0) Monocytes % 14.0% (0.0-11.0) Eosinophils % 3.0% (0.0-7.0) Basophils % 1.4% (0.0-2.0) Nucleated Red Blood Cells % 0.0/100WBC (0.0-0.0) Neutrophils # 2.610^3/ul (1.6-7.5) Lymphocytes # 1.410^3/ul (0.8-2.9) Monocytes # 0.710^3/ul (0.3-0.9) Eosinophils # 0.210^3/ul (0.0-0.5) Basophils # 0.110^3/ul (0.0-0.1) Nucleated Red Blood Cells # 0.010^3/ul (0.0-0.0) Sodium Level 134mmol/L (135-144) Potassium Level 4.4mmol/L (3.5-5.1) Chloride Level 101mmol/L (97-110) Carbon Dioxide Level 26mmol/L (21-31) Anion Gap 11 (8-16) Blood Urea Nitrogen 14mg/dl (7-20) Creatinine 0.92mg/dl (0.44-1.00) Glucose Level 87mg/dl (70-220) Calcium Level 9.7mg/dl (8.4-10.2) Phosphorus Level 4.1mg/dl (2.5-4.9) Magnesium Level 1.9mg/dl (1.7-2.5) BERTA CLARK MD Feb 21, 2017 14:17
== END 2017-02-21 18:35 | disposition home or self-care (01) | DRG 643 ==
LOC: E/R 20:53 → MS3 23:21 → TEL 02-20 02:44 → OBSVTOIN 02-20 16:14 → MS2 02-20 18:59
PROVIDERS: ADMIT Family Medicine; ATTEND Family Medicine
DX: E22.2 Syndrome of inappropriate secretion of antidiuretic hormone (principal); G93.40 Encephalopathy, unspecified; N39.0 Urinary tract infection, site not specified; F41.9 Anxiety disorder, unspecified; R41.0 Disorientation, unspecified; E03.9 Hypothyroidism, unspecified
CPT/HCPCS: 36415; 71010; 71275; 80048; 81001; 82436; 83735; 83930; 83935; 84100; 84133; 84300; 84443; 84484; 85025; 85378; 93005; 96374; 96375; 97161; G0378; J0696; J1650; J2060; J2405; J7030; J7040; Q9967